=== PATIENT | male | born 1980 | race Caucasian/White ===

== ENCOUNTER → 2018-10-16 | Outpatient (CLI) | payer OTHER ==
--- NOTE | 2018-10-16 15:32 | RADIOLOGY REPORT (SQ) ---
EXAM DESCRIPTION: MRI LUMBAR SPINE WITHOUT COMPLETED DATE/TIME: 10/16/2018 2:37 pm REASON FOR STUDY: BACK PAIN M51.37 OTHER INTERVERTEBRAL DISC DEGENERATION, LUMBOSACRAL R COMPARISON: None. TECHNIQUE: Sagittal and Axial imaging includes T1, T2, STIR and gradient echo sequences. Coronal T2/ HASTE imaging. LIMITATIONS: None. FINDINGS: VISUALIZED UPPER ABDOMEN: Limited evaluation. No acute or suspicious findings suggested. SEGMENTATION: No transitional anatomy. The lowest well-developed disc space is labeled L5-S1. ALIGNMENT: Anatomic. VERTEBRAE: Intact. BONE MARROW: Normal. No marrow replacement or reactive changes. DISC SIGNAL: Diminished disc signal L4-5. POSTERIOR ELEMENTS: Generally intact. No pars defect evident. HARDWARE: None in the spine. CORD AND CONUS: Normal in size and signal intensity. Conus at the appropriate level. SOFT TISSUES: No aortic aneurysm seen. No bulky retroperitoneal adenopathy or mass. No paraspinal mas s or fluid. L1-L2: No significant spinal stenosis or exit foraminal stenosis. L2-L3: No significant spinal stenosis or exit foraminal stenosis. L3-L4: No significant spinal stenosis or exit foraminal stenosis. L4-L5: Small central protrusion mildly indents the ventral thecal sac. Mild facet overgrowth. There is bilateral mild lateral recess encroachment. Mild foraminal narrowing. L5-S1: Minimal left paracentral protrusion contacts but does not displace the left S1 nerve root. LOWER THORACIC: Incompletely imaged. No stenosis seen. SACRUM: Visualized upper sacrum intact. OTHER: No other significant findings. IMPRESSION: 1. Spondylosis, L4-5 and L5-S1 disc disease. TECHNICAL DOCUMENTATION: JOB ID: [id number] [employer]- All Rights Reserved Reading location - IP/workstation name: [email or web address]
== END ==
LOC: RAD 13:23
PROVIDERS: ATTEND Clinical Nurse Specialist Adult Health
DX: M51.87 Other intervertebral disc disorders, lumbosacral region (principal); M47.896 Other spondylosis, lumbar region
CPT/HCPCS: 72148